=== PATIENT | male | born 1955 | race African-American/Black ===

== ENCOUNTER 2018-01-25 19:04 | Emergency (ER) | payer MEDICARE ==
[~2018-01-25] VITALS: Ht 185.4 cm; Wt 89.0 kg
[2018-01-25] MEDS ORDERED: TETANUS, DIPHTHERIA, PERTUSSIS VAC/PF 0.5ML (>7YR OLD) IM ONE (21:15)
[2018-01-25] MEDS ORDERED: IBUPROFEN 600MG TABLET PO ONE (21:45)
[2018-01-25 21:59] VITALS: BP 169/85
[2018-01-25] MEDS ORDERED: ACETAMINOPHEN 500MG TABLET PO ONE (22:30)
[2018-01-25] MEDS ORDERED: LIDOCAINE HCL/PF 1% 10 MG/ML 5ML VIAL IJ ONE (22:30)
[2018-01-25] MEDS ORDERED: BACITRACIN ZINC OINT UDPKT TOP ONE (22:30)
[2018-01-26] MEDS ORDERED: BACITRACIN ZINC OINT UDPKT TOP ONE ×2 (01:30→02:30)
[2018-01-26] MEDS ORDERED: LIDOCAINE HCL/PF 1% 10 MG/ML 5ML VIAL IJ ONE (02:15)
== END 2018-01-26 03:19 | disposition home or self-care (01) ==
LOC: ER 19:04
DX: S81.012A Laceration without foreign body, left knee, initial encounter (principal); S81.011A Laceration without foreign body, right knee, initial encounter; S81.812A Laceration without foreign body, left lower leg, initial encounter; W19.XXXA Unspecified fall, initial encounter; Y93.89 Activity, other specified; Y92.89 Other specified places as the place of occurrence of the external cause; Y99.8 Other external cause status
CPT/HCPCS: 12005; 90471; 90715; 99284; J3490